=== PATIENT | male | born 1975 | race Caucasian/White ===

== ENCOUNTER 2017-05-12 21:42 | Emergency (ER) | payer BC ==
[2017-05-12 22:01] VITALS: BP 125/90
--- NOTE | 2017-05-12 22:10 | EDM.PDOC ---
ED HPI GENERAL MEDICAL PROBLEM - General Chief Complaint: Abdominal Pain Stated Complaint: RLQ qabdomninal pain x 2 days. Time Seen by Provider: 05/12/17 22:10 Source of Information: Reports: Patient History Limitations: Reports: No Limitations - History of Present Illness INITIAL COMMENTS - FREE TEXT/NARRATIVE: 41-year-old male attends the ED with diffuse right lower quadrant abdominal pain this been present off and on for the last 3 days. There is a strong intermittent colicky component to the pain that travels up towards his right costal margin and then across the to the upper abdomen in the midline. His appetite remains good. Hurts to walk over. He's been bailing the last few days and doesn't notice it so much on the [place] itself it's more when he gets often has to stand and walk. It is painful to stand fully erect. No Vomiting. No diarrhea .Bowel movements have been normal without blood. Has had right lower quadrant and inguinal hernia repair with mesh grafting.. No associated fever or chills. 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 [No Known Home Meds] 05/12/17 [History] Past Medical History - Past Surgical History GI Surgical History: Reports: Hernia Repair/Other (Right lower quadrant with mesh grafting.) Musculoskeletal Surgical History: Reports: Shoulder Surgery, Other (See Below) Other Musculoskeletal Surgeries/Procedures:: knee surgery Social & Family History - Tobacco Use Smoking Status *Q: Current Every Day Smoker Years of Tobacco use: 25 Packs/Tins Daily: 0.5 - Caffeine Use Caffeine Use: Reports: Coffee - Recreational Drug Use Recreational Drug Use: No - Living Situation & Occupation Living situation: Reports: Occupation: Employed ED ROS GENERAL - Review of Systems Review Of Systems: See Below Constitutional: Denies: Fever, Chills, Malaise, Weakness, Fatigue, Decreased Appetite, Weight Loss HEENT: Reports: No Symptoms Respiratory: Reports: No Symptoms Cardiovascular: Reports: No Symptoms Endocrine: Reports: No Symptoms GI/Abdominal: Reports: Abdominal Pain. Denies: Diarrhea, Distension, Flatus, Nausea, Stool Incontinence : Reports: No Symptoms Musculoskeletal: Reports: No Symptoms Skin: Reports: No Symptoms Neurological: Reports: No Symptoms Psychiatric: Reports: No Symptoms Hematologic/Lymphatic: Reports: No Symptoms Immunologic: Reports: No Symptoms ED EXAM, GI/ABD - Physical Exam Exam: See Below Exam Limited By: No Limitations General Appearance: Alert, WD/WN, No Apparent Distress, Other (Normal vital signs and he is afebrile.) Eyes: Bilateral: Normal Appearance (No jaundice.) Throat/Mouth: Normal Inspection, Normal Oropharynx Head: Atraumatic, Normocephalic Neck: Normal Inspection, Supple, Non-Tender, Full Range of Motion. No: Lymphadenopathy (L), Lymphadenopathy (R) Respiratory/Chest: No Respiratory Distress, Lungs Clear, Normal Breath Sounds, No Accessory Muscle Use Cardiovascular: Normal Peripheral Pulses, Regular Rate, Rhythm, No Edema, No Gallop, No Murmur GI/Abdominal: Hyperactive Bowel Sounds (Mildly hyperactive bowel sounds in all 4 quadrants.), Tenderness (Waylon the right lower quadrant and right radha- abdomen to palpation without rebound or guarding.). No: Guarding, Rebound, Rigidity (Male) Exam: No Hernia Back Exam: Normal Inspection, Full Range of Motion Extremities: Normal Inspection, Normal Range of Motion, Non-Tender, No Pedal Edema Neurological: Alert, Oriented, CN II-XII Intact, Normal Cognition, Normal Gait Psychiatric: Normal Affect, Normal Mood Skin Exam: Warm, Dry, Intact, Normal Color, No Rash Course - Vital Signs Last Recorded V/S: Last Vital Signs Temp 36.6 C 05/12/17 21:55 Pulse 86 05/12/17 21:55 Resp 18 05/12/17 21:55 BP 125/90 05/12/17 21:55 Pulse Ox 98 05/12/17 21:55 - Orders/Labs/Meds Orders: Active Orders 24 hr Category Date Time Status Abdomen 1V Flat [CR] Stat Exams 05/12/17 22:18 Taken Abdomen Pelvis w Cont [CT] Stat Exams 05/13/17 00:05 Taken Ketorolac [Toradol] Med 05/12/17 22:30 Active 30 mg IVPUSH ONETIME Sodium Chloride 0.9% [Saline Flush] Med 05/13/17 00:02 Active 10 ml FLUSH ONETIME PRN Medication Orders Ketorolac Tromethamine (Toradol) 30 mg IVPUSH ONETIME LEON Last Admin: 05/12/17 22:30 Dose: 30 mg Sodium Chloride (Saline Flush) 10 ml FLUSH ONETIME PRN PRN Reason: IV FLUSH Last Admin: 05/13/17 00:12 Dose: 10 ml Labs: Laboratory Tests 05/12/17 05/12/17 05/12/17 Range/Units 22:22 22:22 22:40 WBC 12.31 H (4.23-9.07) K/mm3 RBC 5.07 (4.63-6.08) M/mm3 Hgb 14.9 (13.7-17.5) gm/L Hct 42.9 (40.1-51.0) % MCV 84.6 (79.0-92.2) fl MCH 29.4 (25.7-32.2) pg MCHC 34.7 (32.2-35.5) g/dl RDW Std Deviation 40.9 (35.1-43.9) fL Plt Count 288 (163-337) K/mm3 MPV 9.3 L (9.4-12.3) fl Neutrophils % (Manual) 64 H (40-60) % Band Neutrophils % 0 (0-10) % Lymphocytes % (Manual) 25 (20-40) % Atypical Lymphs % 0 % Monocytes % (Manual) 6 (2-10) % Eosinophils % (Manual) 5 (0.8-7.0) % Basophils % (Manual) 0 L (0.2-1.2) Platelet Estimate Adequate Plt Morphology Comment Normal RBC Morph Comment Normal Sodium 138 (136-145) mEq/L Potassium 3.7 (3.5-5.1) mEq/L Chloride 103 (98-107) mEq/L Carbon Dioxide 23 (21-32) mEq/L Anion Gap 15.7 H (5-15) BUN 15 (7-18) mg/dL Creatinine 0.9 (0.7-1.3) mg/dL Est Cr Clr Drug Dosing 111.53 mL/min Estimated GFR (MDRD) > 60 (>60) mL/min BUN/Creatinine Ratio 16.7 (14-18) Glucose 114 H (74-106) mg/dL Calcium 8.6 (8.5-10.1) mg/dL Total Bilirubin 0.3 (0.2-1.0) mg/dL AST TNP ALT 33 (16-63) U/L Alkaline Phosphatase 84 (46-116) U/L C-Reactive Protein 1.0 (<1.0) mg/dL Total Protein 7.3 (6.4-8.2) g/dl Albumin 3.6 (3.4-5.0) g/dl Globulin 3.7 gm/dL Albumin/Globulin Ratio 1.0 (1-2) Lipase 125 (73-393) U/L Urine Color Yellow (Yellow) Urine Appearance Clear (Clear) Urine pH 5.5 (5.0-8.0) Ur Specific [place] > or = 1.030 (1.005-1.030) Urine Protein Negative (Negative) Urine Glucose (UA) Negative (Negative) Urine Ketones Negative (Negative) Urine Occult Blood Negative (Negative) Urine Nitrite Negative (Negative) Urine Bilirubin Negative (Negative) Urine Urobilinogen 1.0 (0.2-1.0) Ur Leukocyte Esterase Negative (Negative) Urine RBC Not seen (0-5) /hpf Urine WBC 0-5 (0-5) /hpf Ur Epithelial Cells Not seen (0-5) /hpf Urine Bacteria Few (FEW) /hpf Urine Mucus Few (FEW) /hpf Meds: Medications Generic Name Dose Route Start Last Admin Trade Name Freq PRN Reason Stop Dose Admin Ketorolac Tromethamine 30 mg 05/12/17 22:30 05/12/17 22:30 Toradol IVPUSH 30 mg ONETIME LEON Administration Sodium Chloride 10 ml 05/13/17 00:02 05/13/17 00:12 Saline Flush FLUSH 10 ml ONETIME PRN Administration IV FLUSH Discontinued Medications Generic Name Dose Route Start Last Admin Trade Name Freq PRN Reason Stop Dose Admin Dicyclomine HCl 20 mg 05/13/17 00:34 Bentyl PO 05/13/17 00:35 ONETIME ONE Sodium Chloride 1,000 mls @ 500 mls/hr 05/12/17 22:19 05/12/17 22:29 Normal Saline IV 05/13/17 00:18 500 mls/hr ONETIME ONE Administration Iopamidol 150 ml 05/13/17 00:02 05/13/17 00:12 Isovue-300 (61%) IVPUSH 05/13/17 00:03 125 ml ONETIME ONE Administration Magnesium Citrate 210 ml 05/13/17 00:35 Citrate Of Magnesia PO 05/13/17 00:36 ONETIME ONE - Radiology Interpretation Free Text/Narrative:: 41-year-old male attends the ED with gradually worsening right lower quadrant abdominal pain over the last 3 days. There seems to be a constant discomfort as well as an intermittent colicky component. Pain radiates up along the division the right hemicolon to the right costal margin and across to the midline at times. Appetite remains good. He states it's painful to stand fully erect and painful to walk. Painful to cough at times as well. He's been bailing the last several days and doesn't notice as much while he sitting on the [place] but more when he gets up to move and walk suggesting abdominal wall strain. He can't remember anything that would've injured his abdominal wall. No previous abdominal surgery. Examination reveals hyperactive bowel sounds in all 4 quadrants. Benign abdominal examination without guarding or rebound. KUB to be done. Routine labs including a CBC CMP and a CRP to be done including a lipase. IV will be normal saline at open. Given Toradol 30 mg IV for pain relief. - Re-Assessments/Exams Free Text/Narrative Re-Assessment/Exam: 05/12/17 22:50 KUB reveals increased stool in the cecum and in the transverse colon without any air-fluid level to suggest obstruction. However there is an abnormal air-fluid level in a serpiginous pattern in the right lower quadrant and suspect fluid in the right lower quadrant of unclear etiology. Therefore I will go ahead with CT of the abdomen and pelvis with oral and IV contrast. 05/12/17 23:03 labs are now back revealing an elevated white count at 12.31 with essentially a normal differential 64% neutrophils and no bands. Hemoglobin is 14.9 HEENT hematocrit is 42.9. Platelets are normal limits. 22,000. Chemistry is normal as well. Anion gap is mildly elevated at 15.7. Creatinine is 0.9 CRP is 1.0 lipase is 125. Therefore there is nothing metabolically that appears out of the norm. 05/13/17 00:30 CT of the abdomen and pelvis has been performed. The reveals a normal-looking liver and gallbladder. Pancreas appears normal both kidneys and drainage systems look normal. There is a large amount of stool throughout the entire colon particularly the right hemicolon and transverse colon. Appendix is well-visualized and shows no signs of active infection. There is no free fluid in the pelvis. Patient and so advised. He'll be given Citroma 7 ounces by mouth which will mix with the oral contrast that he's taken tonight. This should provide satisfactory bowel cleanse over the next 6 hours. He'll be discharged to home. I did give him Bentyl 20 mg orally before he left the department to minimize some of his abdominal pain. Departure - Departure Time of Disposition: 00:37 Disposition: Home, Self-Care 01 Condition: Fair Clinical Impression: Constipation by delayed colonic transit Abdominal pain Qualifiers: Abdominal location: right lower quadrant Qualified Code(s): R10.31 - Right lower quadrant pain - Discharge Information Referrals: Lizzette Kemp PA [Primary Care Provider] - Forms: ED Department Discharge Additional Instructions: Evaluation the emergency room tonight in regards to persistent intermittent right lower quadrant and right radha-abdominal pain for the last 2-3 days. No change in appetite. Bowel function tends to be on the diarrhea side. On examination bowel sounds were quite active in all 4 quadrants. Evidence of the previous inguinal hernia repair in the right lower quadrant noted. X-ray of the abdomen showed at bizarre there and gas collection in the cecum or outside of the cecum in the right lower quadrant of the abdomen. Therefore this should by CT of the abdomen and pelvis. The CT of the abdomen and pelvis. To be completely normal and appendix is well-visualized without any signs of active appendicitis or infection of the colon. There is an increased amount of stool throughout the entire right hemicolon and transverse colon compatible with constipation. The contrast that he drank 4 CT exam plus oral Citroma given in the ED will provide bowel cleanse over the next 2-3 hours. Pain should be completely resolved once the bowels have been cleansed. They eat and drink per normal. Follow-up if not markedly improved after bowel cleanse. - My Orders Last 24 Hours: My Active Orders 05/12/17 22:18 Abdomen 1V Flat [CR] Stat 05/12/17 22:30 Ketorolac [Toradol] 30 mg IVPUSH ONETIME 05/13/17 00:02 Sodium Chloride 0.9% [Saline Flush] 10 ml FLUSH ONETIME PRN 05/13/17 00:05 Abdomen Pelvis w Cont [CT] Stat - Assessment/Plan Last 24 Hours: My Active Orders 05/12/17 22:18 Abdomen 1V Flat [CR] Stat 05/12/17 22:30 Ketorolac [Toradol] 30 mg IVPUSH ONETIME 05/13/17 00:02 Sodium Chloride 0.9% [Saline Flush] 10 ml FLUSH ONETIME PRN 05/13/17 00:05 Abdomen Pelvis w Cont [CT] Stat
[2017-05-12] MEDS ORDERED: Sodium Chloride 0.9% 1,000 ML IV ONE (22:19)
[2017-05-12] MEDS ORDERED: Ketorolac 30 MG/ML SDV IVPUSH SCH (22:30)
[2017-05-13] MEDS ORDERED: Sodium Chloride 0.9% 10 ML Syringe FLUSH PRN (00:02)
[2017-05-13] MEDS ORDERED: Iopamidol 612 MG/ML 150 ML Bottle IVPUSH ONE (00:02)
[2017-05-13] MEDS ORDERED: Dicyclomine 10 MG Cap PO ONE (00:34)
[2017-05-13] MEDS ORDERED: Magnesium Citrate Solution 296 ML Bottle PO ONE ×2 (00:35→00:45)
--- NOTE | 2017-05-14 17:53 | CR ---
Abdomen: Supine view of the abdomen was obtained. Comparison: No previous exam. Bowel gas pattern appears normal. Calcifications are seen within the pelvis likely representing phleboliths. Bony structures are within normal limits. No discrete soft tissue abnormality is seen. Impression: 1. Nonspecific supine abdominal x-ray. Diagnostic code #2
--- NOTE | 2017-05-14 17:53 | CT ---
CT abdomen and pelvis Technique: Multiple axial sections were obtained from above the dome of the diaphragm inferiorly through the pubic symphysis. Intravenous and oral contrast was utilized. Delayed images were also obtained through the bladder. Comparison: No previous CT exam is available. Findings: Small portion of the visualized lung bases show nothing acute. Liver shows a minimal low-density area within the right lobe measuring about 4 mm most likely representing minimal cyst. No additional abnormality is seen within the liver. Spleen appears within normal limits. Adrenal glands show no nodule. Pancreas is within normal limits. Kidneys show symmetric contrast enhancement without hydronephrosis or mass. Aorta shows no aneurysmal dilatation. No retroperitoneal adenopathy or mesenteric abnormalities are seen. Appendix is seen which appears within normal limits. No pelvic mass or adenopathy is seen. Bowel shows no dilatation. No free fluid or inflammatory change is seen. Delayed images show contrast within the distal ureters and within the bladder. Bone window settings were reviewed which appear within normal limits for the patient's age. Impression: 1. Incidental findings. Nothing acute is seen on CT study of the abdomen and pelvis. Diagnostic code #2 I agree with preliminary report issued by [employer] ([facility] preliminary report dictated on 05/13/17, 1:41 AM Central Time)
== END 2017-05-13 00:53 | disposition home or self-care (01) ==
LOC: JD.ED 21:42
DX: K59.01 Slow transit constipation (principal); R10.31 Right lower quadrant pain; F17.210 Nicotine dependence, cigarettes, uncomplicated; Z98.890 Other specified postprocedural states
CPT/HCPCS: 36415; 74000; 74177; 80053; 81001; 83690; 85025; 86140; 96361; 96374; 99285; A9270; J1885; J7040; J7050; Q9967; 99284

== ENCOUNTER 2018-03-17 20:52 | Emergency (ER) | payer BC ==
[2018-03-17 21:06] VITALS: BP 139/91
--- NOTE | 2018-03-17 21:13 | EDM.PDOC ---
ED HPI GENERAL MEDICAL PROBLEM - General Chief Complaint: ENT Problem Stated Complaint: COUGH/SORE THROAT/FEVER Time Seen by Provider: 03/17/18 21:13 Source of Information: Reports: Patient History Limitations: Reports: No Limitations - History of Present Illness INITIAL COMMENTS - FREE TEXT/NARRATIVE: Haresh is a 42yo male comes to ED ambulatory with for one week hx of sore throat, ear pain, cough, headache due to coughing. cough is mildly productive with slight yellow/green sputum production. He has had fevers, chills and sweats , sweats worse at night. No n/v/d. Minimal appetite. He has had sick contacts with his kids at home the past month. He is otherwise healthy. NKDA. He does smoke cigarettes- has cut back and is trying to quit. Onset: Gradual Duration: Day(s): (4-5) Location: Reports: Other (throat, ears, chest/cough) Improves with: Reports: None Worsens with: Reports: Breathing, Movement Associated Symptoms: Reports: Cough, cough w sputum (minimal amt of yellow/ green sputum production), Diaphoresis, Fever/Chills, Headaches, Loss of Appetite , Malaise. Denies: Confusion, Chest Pain, Nausea/Vomiting, Rash, Shortness of Breath, Syncope, Weakness Treatments QUALITY REVIEWER: Reports: Acetaminophen, NSAIDS Throat Pain Score (Numeric/FACES): 7 - Related Data Allergies Allergy/AdvReac Type Severity Reaction Status Date / Time No Known Allergies Allergy Verified 03/17/18 21:04 Home Meds: Home Meds Ibuprofen 800 mg PO ONCALL PRN 03/17/18 [History] Past Medical History - Past Surgical History GI Surgical History: Reports: Hernia Repair/Other Musculoskeletal Surgical History: Reports: Shoulder Surgery, Other (See Below) Other Musculoskeletal Surgeries/Procedures:: knee surgery Social & Family History - Tobacco Use Smoking Status *Q: Current Every Day Smoker Years of Tobacco use: 20 Packs/Tins Daily: 0.5 - Caffeine Use Caffeine Use: Reports: Coffee - Recreational Drug Use Recreational Drug Use: No - Living Situation & Occupation Living situation: Reports: Occupation: Employed ED ROS ENT - Review of Systems Review Of Systems: See Below Constitutional: Reports: Fever, Chills, Malaise, Fatigue, Night Sweats, Diaphoresis, Decreased Appetite HEENT: Reports: Ear Pain, Throat Pain Respiratory: Reports: Cough, Sputum. Denies: Shortness of Breath, Hemoptysis Cardiovascular: Reports: No Symptoms GI/Abdominal: Reports: No Symptoms Skin: Denies: Rash Neurological: Reports: Headache ED EXAM, ENT - Physical Exam Exam: See Below Exam Limited By: No Limitations General Appearance: Alert, WD/WN, Mild Distress, Other (coughing spells) Eye Exam: Bilateral Eye: EOMI, PERRL Ears: Normal Canal, TM Dullness, TM Fluid Nose: Normal Inspection Mouth/Throat: Normal Gums, Normal Teeth, Pharyngeal Erythema. No: Tonsillar Exudates, Tonsillar Swelling Head: Atraumatic, Normocephalic Neck: Normal Inspection, Lymphadenopathy (L), Lymphadenopathy (R) Respiratory/Chest: No Respiratory Distress, No Accessory Muscle Use, Rhonchi, Wheezing Cardiovascular: Regular Rate, Rhythm, No Murmur GI/Abdominal: Normal Bowel Sounds, Soft, Non-Tender (Male) Exam: Deferred Rectal (Males) Exam: Deferred Extremities: No Pedal Edema Neurological: Alert, Oriented, Normal Cognition Skin: Warm, Dry, Intact Course - Vital Signs Last Recorded V/S: Last Vital Signs Temp 100.0 F 03/17/18 21:04 Pulse 98 03/17/18 21:04 Resp 16 03/17/18 21:04 BP 139/91 H 03/17/18 21:04 Pulse Ox 94 L 03/17/18 21:04 - Orders/Labs/Meds Meds: Medications Discontinued Medications Generic Name Dose Route Start Last Admin Trade Name Freq PRN Reason Stop Dose Admin Ceftriaxone Sodium 500 mg 03/17/18 21:24 Rocephin IM 03/17/18 21:25 ONETIME ONE Departure - Departure Time of Disposition: 21:35 Disposition: Home, Self-Care 01 Condition: Good Clinical Impression: Tonsillitis, Bronchitis Serous otitis media Qualifiers: Chronicity: acute Laterality: bilateral Recurrence: not specified as recurrent Qualified Code(s): H65.03 - Acute serous otitis media, bilateral - Discharge Information Instructions: Tonsillitis, [id number], Acute Bronchitis, Adult, [id number] Referrals: Naomi Mccullough [employer] [Primary Care Provider] - Forms: ED Department Discharge Additional Instructions: Push fluids Tylenol or motrin, can alternate every 4 hours for headache/pain Sudafed for ear pain/pressure Antibiotic twice daily x 7 days Cough syrup if needed every 4 hours Follow up with [facility]ER[facility] Griffith if not significantly improved by early next week Return to ER if needed for worsening, problems, questions/concerns.
[2018-03-17] MEDS ORDERED: cefTRIAXone 250 MG Vial IM ONE (21:24)
[2018-03-17] MEDS ORDERED: cefTRIAXone 1 GM Vial ONE (21:26)
[2018-03-17] MEDS ORDERED: cefTRIAXone 1 GM Vial IM ONE (21:40)
== END 2018-03-17 21:45 | disposition home or self-care (01) ==
LOC: JD.ED 20:52
DX: H65.03 Acute serous otitis media, bilateral (principal); J03.90 Acute tonsillitis, unspecified; J40 Bronchitis, not specified as acute or chronic; F17.210 Nicotine dependence, cigarettes, uncomplicated
CPT/HCPCS: 96372; 99283; J0696

== ENCOUNTER 2019-09-07 14:23 | Emergency (ER) | payer BC ==
[2019-09-07 14:34] VITALS: BP 146/92; PULSE 77
[2019-09-07] MEDS ORDERED: HYDROmorphone 1 MG/ML Syringe IM ONE (14:36)
[2019-09-07] MEDS ORDERED: Ondansetron 4 MG Tab.DIS PO PRN (14:41)
--- NOTE | 2019-09-07 14:48 | EDM.PDOC ---
ED HPI GENERAL MEDICAL PROBLEM - General Chief Complaint: Upper Extremity Injury/Pain Stated Complaint: L HAND INJURY Time Seen by Provider: 09/07/19 14:35 Source of Information: Reports: Patient, RN Notes Reviewed History Limitations: Reports: No Limitations - History of Present Illness INITIAL COMMENTS - FREE TEXT/NARRATIVE: Patient is a 44-year-old male who presents to the ED for evaluation of a left hand injury. Patient states that just prior to arrival to the ED, he got his hand crushed between a rope and the cow's head. There is significant swelling noted to the MCPs of the left hand, with some mild swelling noted to the fingers. Patient believes he is up-to-date with his tetanus, he states that his whole hand and fingers are throbbing with pain. He is not able to move the fingers much, as there is quite a bit of swelling, he was able to wiggle the fingers limitedly for me, and he can feel my touch distal to the diffuse swelling over the MCPs. There are some lacerations noted on the hand, however there is quite a bit of bleeding present, will assess lacerations when the nurse has time to clean the wound up. Of note the patient is on blood thinners due to having 2 stents placed recently by Dr. Coulter. Patient notes he is right- hand dominant. Left Hand Pain Score (Numeric/FACES): 8 - Related Data Allergies Allergy/AdvReac Type Severity Reaction Status Date / Time No Known Allergies Allergy Verified 09/07/19 15:12 Home Meds: Home Meds Aspirin [[place] Aspirin EC] 81 mg PO DAILY 06/04/19 [History] Nitroglycerin 0.4 mg SL ASDIRECTED PRN 06/04/19 [History] Ticagrelor [Brilinta] 90 mg PO BID 06/04/19 [History] atorvaSTATin Calcium [Atorvastatin Calcium] 40 mg PO DAILY 06/04/19 [History] Acetaminophen/HYDROcodone [[place] 325-5 MG] 1 tab PO Q6H PRN #12 tablet 09/07/19 [Rx] Past Medical History Cardiovascular History: Reports: High Cholesterol, [place], Stents - Past Surgical History HEENT Surgical History: Reports: Naso-Sinus Surgery GI Surgical History: Reports: Hernia Repair/Other Musculoskeletal Surgical History: Reports: Shoulder Surgery, Other (See Below) Other Musculoskeletal Surgeries/Procedures:: knee surgery Social & Family History - Family History Cardiac: Reports: CAD, [place] - Tobacco Use Smoking Status *Q: Current Every Day Smoker Years of Tobacco use: 25 Packs/Tins Daily: 0.3 - Caffeine Use Caffeine Use: Reports: Coffee, Soda - Recreational Drug Use Recreational Drug Use: No - Living Situation & Occupation Living situation: Reports: Occupation: Employed Review of Systems - Review of Systems Review Of Systems: ROS reveals no pertinent complaints other than HPI. Musculoskeletal: Reports: Hand Pain (Left hand, mainly over MCP and into fingers 2-5) Skin: Reports: Wound, Other (swelling noted to L MCP 2-5). Denies: Mottled, Pallor, Change in Color Neurological: Reports: No Symptoms. Denies: Numbness, Tingling Psychiatric: Reports: No Symptoms ED EXAM, GENERAL - Physical Exam Exam: See Below Exam Limited By: No Limitations General Appearance: Alert, WD/WN, No Apparent Distress Respiratory/Chest: No Respiratory Distress, Lungs Clear, Normal Breath Sounds, No Accessory Muscle Use, Chest Non-Tender Cardiovascular: Normal Peripheral Pulses, Regular Rate, Rhythm, No Murmur Peripheral Pulses: 3+: Radial (L), Radial (R) Extremities: Normal Inspection, Normal Range of Motion (of right hand), Normal Capillary Refill (of right hand), Limited Range of Motion (of left hand and fingers 2-5) Neurological: Alert, Oriented, Normal Cognition, No Motor/Sensory Deficits Psychiatric: Normal Affect, Normal Mood Skin Exam: Warm, Dry, Normal Color, No Rash, Wound/Incision (2 wounds : On the palmar aspect of left hand near the left ring finger base, this laceration is curvilinear, and roughly 3 cm long, and actively bleeding. Area to is on the posterior aspect of the left h between the web spacing of the thumb and the first and the second digit, this was a skin flap, roughly 3 x 2 cm. Still actively bleeding. ) ED TRAUMA EXTREMITY PROCEDURES - Laceration/Wound Repair Left Proximal Digit - 4th (Ring) Lac/Wound Length In cm: 3 Appearance: Superficial, Linear, Clean, Mildly Contaminated Distal NVT: Neuro & Vascular Intact, No Tendon Injury Anesthetic Type: Local Local Anesthetic Volume: 4cc Skin Prep: Chlorhexidine (Hibiciens), Saline Exploration/Debridement/Repair: Wound Explored, In a Bloodless Field, Explored to Base, No Foreign Material Found Closed With: Sutures Suture Size: 4-0 # of Sutures: 4 Sterile Dressing Applied: Nurse Tetanus Status Addressed: Yes Complications: No Left Posterior Lateral Hand Lac/Wound Length In cm: 3 (v-shaped, 3x2cm) Appearance: Irregular, Clean Distal NVT: Neuro & Vascular Intact, No Tendon Injury Sterile Dressing Applied: Nurse Tetanus Status Addressed: Yes Complications: No Progress/Comments: This was a skin flap type injury, there was little viable tissue to suture, so the area was debrided away to heal by it's own intention. Course - Vital Signs Last Recorded V/S: Last Vital Signs Temp 98.3 F 09/07/19 14:30 Pulse 77 09/07/19 14:30 Resp 20 09/07/19 14:30 BP 146/92 H 09/07/19 14:30 Pulse Ox 99 09/07/19 14:30 - Orders/Labs/Meds Orders: Active Orders 24 hr Category Date Time Status Influenza Vaccine Charge [RC] .DISCHARGE Care 09/07/19 16:37 Active Hand Comp Min 3V Lt [CR] Stat Exams 09/07/19 14:36 Taken Ondansetron [Zofran ODT] Med 09/07/19 14:41 Active 4 mg PO Q4H PRN Medication Orders Ondansetron HCl (Zofran Odt) 4 mg PO Q4H PRN PRN Reason: Nausea Meds: Medications Generic Name Dose Route Start Last Admin Trade Name Freq PRN Reason Stop Dose Admin Ondansetron HCl 4 mg 09/07/19 14:41 Zofran Odt PO Q4H PRN Nausea Discontinued Medications Generic Name Dose Route Start Last Admin Trade Name Freq PRN Reason Stop Dose Admin Hydrocodone Bitart/Acetaminophen 1 tab 09/07/19 15:20 09/07/19 15:29 [place] 325-5 Mg PO 09/07/19 15:21 1 tab ONETIME ONE Administration Hydromorphone HCl 1 mg 09/07/19 14:36 09/07/19 14:41 Dilaudid IM 09/07/19 14:37 1 mg ONETIME ONE Administration Influenza Virus Vaccine 1 each 09/07/19 16:36 Pharmacy To Dose - Influenza Vaccine IM 09/07/19 16:37 ONETIME ONE Influenza Virus Vaccine 60 mcg 09/07/19 16:45 Fluzone Quad [id number] Syringe IM 09/07/19 16:46 .ONCE ONE Lidocaine HCl 10 ml 09/07/19 15:57 09/07/19 16:22 Xylocaine 1% INJECT 09/07/19 15:58 10 ml ONETIME ONE Administration - Re-Assessments/Exams Free Text/Narrative Re-Assessment/Exam: 09/07/19 14:50 Patient resents to the ED for the evaluation of a left hand injury. This appears to be pretty extreme crush type injury, have ordered hand x-rays to be obtained, and 1 mg IM Dilaudid for initial pain management, with 4 mg ODT Zofran PRN in case he develops nausea from the Dilaudid. There are wounds noted to the hand, however with the amount of blood at this time I cannot ascertain the level of severity. I will reassess the hand once the x-rays are done, and the nurse has a chance to clean the hand up a little more. 09/07/19 16:49 Hand x-ray demonstrates no obvious fracture or bony deformity. This was reviewed by Dr. Hong and myself, official radiology read is pending. There was one suturable wound to the proximal base of the left fourth finger, on the palmar aspect of the hand. This was repaired with 4 nonabsorbable sutures, discharge instructions as documented. After I repaired his wounds, the patient wished to receive the influenza vaccine, so I did order this to be given as well. Departure - Departure Time of Disposition: 16:44 Disposition: Home, Self-Care 01 Condition: Fair Clinical Impression: Crushing injury of left hand Qualifiers: Encounter type: initial encounter Qualified Code(s): S67.22XA - Crushing injury of left hand, initial encounter Laceration of left hand Qualifiers: Encounter type: initial encounter Foreign body presence: without foreign body Qualified Code(s): S61.412A - Laceration without foreign body of left hand, initial encounter Traumatic hematoma of left hand Qualifiers: Encounter type: initial encounter Qualified Code(s): S60.222A - Contusion of left hand, initial encounter - Discharge Information *PRESCRIPTION DRUG MONITORING PROGRAM REVIEWED*: No *COPY OF PRESCRIPTION DRUG MONITORING REPORT IN PATIENT ODALYS: No Prescriptions: Acetaminophen/HYDROcodone [[place] 325-5 MG] 1 tab PO Q6H PRN #12 tablet PRN Reason: Pain Instructions: Hand Contusion, [id number], Sutured Wound Care, [id number] Referrals: Naomi Mccullough, [employer] [Primary Care Provider] - Forms: ED Department Discharge Additional Instructions: You have been evaluated in the ED for your laceration. Sutures will need to stay in for 10-14 days (09/17 - 09/21) You may return to the ED or clinic for removal. Please keep this area clean and dry, you may cleanse with regular soap and water. No vigorous scrubbing. You were given a prescription for hydrocodone/acetaminophen, 5/325, please take one tablet every 6 hours as needed for pain not relieved by Tylenol alone. Please be wary that you are only taking up to 4000 mg of Tylenol in a 24-hour time span. Recommend that you have a follow-up appointment with your primary care provider , Monday or Monday to assess the area, so that the swelling has time to come down. Please keep the area wrapped as tight as possible with an Brent wrap, and keep your hand above your heart level, you will need to rest this on your chest when laying down. This should help keep the swelling down as well. You may try to ice the area as well for swelling relief. 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 Please return to ED if your symptoms change or worsen. - My Orders Last 24 Hours: My Active Orders 09/07/19 14:36 Hand Comp Min 3V Lt [CR] Stat 09/07/19 14:41 Ondansetron [Zofran ODT] 4 mg PO Q4H PRN 09/07/19 16:37 Influenza Vaccine Charge [RC] .DISCHARGE - Assessment/Plan Last 24 Hours: My Active Orders 09/07/19 14:36 Hand Comp Min 3V Lt [CR] Stat 09/07/19 14:41 Ondansetron [Zofran ODT] 4 mg PO Q4H PRN 09/07/19 16:37 Influenza Vaccine Charge [RC] .DISCHARGE
[2019-09-07] MEDS ORDERED: Acetaminophen/HYDROcodone 325-5 MG Tab PO ONE (15:20)
[2019-09-07] MEDS ORDERED: Lidocaine 1% 10 ML MDV INJECT ONE (15:57)
[2019-09-07] MEDS ORDERED: FLU Vacc QS2019-20(6MOS+)/PF 60 MCG/0.5 ML SYRINGE IM ONE (16:45)
--- NOTE | 2019-09-08 16:15 | CR ---
Left hand: Four views of the left hand were obtained. Comparison: No prior hand exam. Joint spaces are preserved. Prominent soft tissue swelling is noted dorsally. No discrete fracture, dislocation or other bony abnormality is seen. Impression: 1. Soft tissue swelling. No acute bony abnormality is appreciated on left hand exam. Diagnostic code #2
== END 2019-09-07 16:58 | disposition home or self-care (01) ==
LOC: JD.ED 14:23
DX: S67.22XA Crushing injury of left hand, initial encounter (principal); S67.195A Crushing injury of left ring finger, initial encounter; S61.215A Laceration without foreign body of left ring finger without damage to nail, initial encounter; S61.412A Laceration without foreign body of left hand, initial encounter; I25.2 Old myocardial infarction; E78.00 Pure hypercholesterolemia, unspecified; F17.210 Nicotine dependence, cigarettes, uncomplicated; Z23 Encounter for immunization; Z79.82 Long term (current) use of aspirin; Z95.5 Presence of coronary angioplasty implant and graft; Z79.899 Other long term (current) drug therapy; W55.29XA Other contact with cow, initial encounter
CPT/HCPCS: 12002; 73130; 90471; 90686; 96372; 99283; A9270; J1170; J2001; G0008

== ENCOUNTER 2021-11-10 20:53 | Emergency (ER) | payer BC ==
[2021-11-10 21:08] VITALS: BP 136/92; PULSE 86
[2021-11-10] MEDS ORDERED: Metoclopramide 10 MG/2 ML SDV IVPUSH ONE (21:24)
[2021-11-10] MEDS ORDERED: Sodium Chloride 0.9% 10 ML Syringe FLUSH PRN (21:24)
[2021-11-10] MEDS ORDERED: Sodium Chloride 0.9% 1,000 ML IV STA (21:24)
[2021-11-10] MEDS ORDERED: HYDROmorphone 1 MG/ML Syringe IVPUSH ONE (21:25)
--- NOTE | 2021-11-10 21:31 | EDM.PDOC ---
ED HPI GENERAL MEDICAL PROBLEM - General Chief Complaint: Gastrointestinal Problem Stated Complaint: ABD PAIN Time Seen by Provider: 11/10/21 21:09 Source of Information: Reports: Patient History Limitations: Reports: No Limitations - History of Present Illness INITIAL COMMENTS - FREE TEXT/NARRATIVE: The patient presents with abdominal pain and nausea. This started lat night a fter eating a burger at the [facility] in [place]. He has nausea but no vomiting. He has been burping. He has no appetite. He just had coffee and water today. He has loose stools but that is normal for him. He has no fever, chills, cough, chest pain or shortness of breath. The pain is in the mid abdomen and to the right side. He has no dysuria. He still has his gallbladder and appendix. Onset: Gradual Duration: Day(s): (last night) Location: Reports: Abdomen Quality: Reports: Sharp Severity: Moderate Improves with: Reports: None Worsens with: Reports: None Associated Symptoms: Reports: Nausea/Vomiting. Denies: Chest Pain, Cough, Fever/Chills, Headaches, Shortness of Breath Abdomen Pain Score (Numeric/FACES): 4 - Related Data Allergies Allergy/AdvReac Type Severity Reaction Status Date / Time No Known Allergies Allergy Verified 11/10/21 21:08 Home Meds: Home Meds Aspirin [[place] Aspirin EC] 81 mg PO DAILY 06/04/19 [History] Nitroglycerin 0.4 mg SL ASDIRECTED PRN 06/04/19 [History] Ezetimibe 10 mg PO DAILY 11/10/21 [History] Rosuvastatin [Crestor] 40 mg PO BEDTIME 11/10/21 [History] Metoclopramide HCl [Reglan] 10 mg PO Q6H PRN #20 tablet 11/11/21 [Rx] Omeprazole Magnesium [Prilosec Otc] 20 mg PO DAILY #14 tablet. 11/11/21 [Rx] Past Medical History Cardiovascular History: Reports: High Cholesterol, [place], Stents - Past Surgical History HEENT Surgical History: Reports: Naso-Sinus Surgery GI Surgical History: Reports: Hernia Repair/Other Musculoskeletal Surgical History: Reports: Shoulder Surgery, Other (See Below) Other Musculoskeletal Surgeries/Procedures:: knee surgery Social & Family History - Family History Cardiac: Reports: CAD, [place] - Tobacco Use Years of Tobacco use: 30 Packs/Tins Daily: 1 Used Tobacco, but Quit: No - Caffeine Use Caffeine Use: Reports: Coffee - Recreational Drug Use Recreational Drug Use: No - Living Situation & Occupation Living situation: Reports: Occupation: Employed ED ROS GENERAL - Review of Systems Review Of Systems: See Below Constitutional: Reports: No Symptoms HEENT: Reports: No Symptoms Respiratory: Reports: No Symptoms Cardiovascular: Reports: No Symptoms Endocrine: Reports: No Symptoms GI/Abdominal: Reports: Abdominal Pain, Diarrhea, Nausea. Denies: Vomiting : Reports: No Symptoms Musculoskeletal: Reports: No Symptoms Skin: Reports: No Symptoms ED EXAM, GI/ABD - Physical Exam Exam: See Below Exam Limited By: No Limitations General Appearance: Alert, No Apparent Distress Ears: Normal External Exam Nose: Normal Inspection Head: Atraumatic, Normocephalic Neck: Normal Inspection Respiratory/Chest: No Respiratory Distress, Lungs Clear, Normal Breath Sounds Cardiovascular: Regular Rate, Rhythm, No Edema, No Murmur GI/Abdominal Exam: Soft, No Organomegaly, Tender (Mild to moderate tenderness to the mid abdomen extending to the right upper and lower abdomen) Course - Vital Signs Last Recorded V/S: Last Vital Signs Temp 98.8 F 11/10/21 21:04 Pulse 86 11/10/21 21:04 Resp 16 11/10/21 21:04 BP 136/92 H 11/10/21 21:04 Pulse Ox 94 L 11/10/21 21:04 - Orders/Labs/Meds Orders: Active Orders 24 hr Category Date Time Status Peripheral IV Care [RC] . DIRECTED Care 11/10/21 21:24 Active Abdomen Pelvis w Cont [CT] Stat Exams 11/10/21 21:24 Taken Famotidine [Pepcid] Med 11/10/21 23:57 Once 20 mg IVPUSH ONETIME ONE Pantoprazole [ProTONIX IV] Med 11/10/21 23:57 Once 40 mg IVPUSH ONETIME ONE Sodium Chloride 0.9% [Saline Flush] Med 11/10/21 21:24 Active 10 ml FLUSH ASDIRECTED PRN ED Antiemetic Medication Reflex [OM.PC] Stat Oth 11/10/21 21:24 Ordered Peripheral IV Insertion Adult [OM.PC] Stat Oth 11/10/21 21:24 Ordered Medication Orders Sodium Chloride (Sodium Chloride 0.9% 10 Ml Syringe) 10 ml FLUSH ASDIRECTED PRN PRN Reason: Keep Vein Open Last Admin: 11/10/21 21:49 Dose: 10 ml Documented by: ARIANA Labs: Laboratory Tests 11/10/21 11/10/21 11/10/21 Range/Units 21:45 21:45 21:45 WBC 14.15 H (4.23-9.07) K/mm3 RBC 5.73 (4.63-6.08) M/mm3 Hgb 16.6 (13.7-17.5) gm/dl Hct 49.3 (40.1-51.0) % MCV 86.0 (79.0-92.2) fl MCH 29.0 (25.7-32.2) pg MCHC 33.7 (32.2-35.5) g/dl RDW Std Deviation 41.8 (35.1-43.9) fL Plt Count 311 (163-337) K/mm3 MPV 9.2 L (9.4-12.3) fl Neut % (Auto) 66.0 (34.0-67.9) % Lymph % (Auto) 16.6 L (21.8-53.1) % [place] % (Auto) 15.3 H (5.3-12.2) % Eos % (Auto) 1.7 (0.8-7.0) Baso % (Auto) 0.2 (0.1-1.2) % Neut # (Auto) 9.33 H (1.78-5.38) K/mm3 Lymph # (Auto) 2.35 (1.32-3.57) K/mm3 [place] # (Auto) 2.17 H (0.30-0.82) K/mm3 Eos # (Auto) 0.24 (0.04-0.54) K/mm3 Baso # (Auto) 0.03 (0.01-0.08) K/mm3 Manual Slide Review Sodium 136 (136-145) mEq/L Potassium 4.2 (3.5-5.1) mEq/L Chloride 100 (98-107) mEq/L Carbon Dioxide 25 (21-32) mEq/L Anion Gap 15.2 H (5-15) BUN 17 (7-18) mg/dL Creatinine 1.0 (0.7-1.3) mg/dL Est Cr Clr Drug Dosing 95.31 mL/min Estimated GFR (MDRD) > 60 (>60) mL/min BUN/Creatinine Ratio 17.0 (14-18) Glucose 94 (70-99) mg/dL Calcium 8.9 (8.5-10.1) mg/dL Total Bilirubin 0.6 (0.2-1.0) mg/dL AST 24 (15-37) U/L ALT 45 (16-63) U/L Alkaline Phosphatase 90 (46-116) U/L Total Protein 7.9 (6.4-8.2) g/dl Albumin 4.2 (3.4-5.0) g/dl Globulin 3.7 gm/dL Albumin/Globulin Ratio 1.1 (1-2) Lipase 99 (73-393) U/L Urine Color Yellow (Yellow) Urine Appearance Clear (Clear) Urine pH 6.0 (5.0-8.0) Ur Specific [place] 1.015 (1.005-1.030) Urine Protein Negative (Negative) Urine Glucose (UA) Negative (Negative) Urine Ketones Negative (Negative) Urine Occult Blood Negative (Negative) Urine Nitrite Negative (Negative) Urine Bilirubin Negative (Negative) Urine Urobilinogen 0.2 (0.2-1.0) Ur Leukocyte Esterase Negative (Negative) Urine RBC 0-5 (0-5) /hpf Urine WBC 0-5 (0-5) /hpf Ur Squamous Epith Cells 0-5 (0-5) /hpf Urine Bacteria Occasional (FEW) /hpf Urine Mucus Few (FEW) /hpf Meds: Medications Generic Name Dose Route Start Last Admin Trade Name Liam PRN Reason Stop Dose Admin Sodium Chloride 10 ml 11/10/21 21:24 11/10/21 21:49 Sodium Chloride 0.9% 10 Ml Syringe FLUSH 10 ml ASDIRECTED PRN Administration Keep Vein Open Discontinued Medications Generic Name Dose Route Start Last Admin Trade Name Liam PRN Reason Stop Dose Admin Hydromorphone HCl 1 mg 11/10/21 21:25 11/10/21 21:43 Hydromorphone 1 Mg/Ml Syringe IVPUSH 11/10/21 21:26 1 mg ONETIME ONE Administration Sodium Chloride 1,000 mls @ 1,000 mls/hr 11/10/21 21:24 11/10/21 21:42 Normal Saline IV 11/10/21 22:23 1,000 mls/hr .BOLUS STA Administration Metoclopramide HCl 10 mg 11/10/21 21:24 11/10/21 21:43 Metoclopramide 10 Mg/2 Ml Sdv IVPUSH 11/10/21 21:25 10 mg ONETIME ONE Administration - Re-Assessments/Exams Free Text/Narrative Re-Assessment/Exam: 11/10/21 21:31 I ordered an IV NS 1L bolus, reglan 10mg IV, dilaudid 1mg IV, labs, UA and CT of his abdomen and pelvis with IV and oral contrast. 11/10/21 23:58 His WBC was elevated at 14.15. His CMP and lipase look good. His UA shows no UTI. His CT shows findings suggestive of gastroenteritis. No evidence of bowel obstruction, perforation, or abscess. Normal appendix. Moderate colonic stool, possible constipation. Mild distal colonic diverticulosis without evidence of diverticulitis. Additional nonemergent findings. He feels better. I will give him some protonix 40mg IV, and pepcid 20mg. I will also give him a prescription for prilosec daily for 2 weeks and some reglan as needed. Departure - Departure Time of Disposition: 00:05 Disposition: Home, Self-Care 01 Condition: Good Clinical Impression: Gastroenteritis - Discharge Information *PRESCRIPTION DRUG MONITORING PROGRAM REVIEWED*: Not Applicable *COPY OF PRESCRIPTION DRUG MONITORING REPORT IN PATIENT ODALYS: Not Applicable Prescriptions: Omeprazole Magnesium [Prilosec Otc] 20 mg PO DAILY #14 tablet. Metoclopramide HCl [Reglan] 10 mg PO Q6H PRN #20 tablet PRN Reason: Nausea/Vomiting Referrals: Naomi Mccullough, [employer]ISTANT [Primary Care Provider] - 1 Week Forms: ED Department Discharge, ED Return to Work/School Form Additional Instructions: Drink plenty of fluids. Take the prilosec 20mg daily for 2 weeks. Take the re glan every 6 hours as needed for nausea and vomiting. Try to avoid any heavy or spicy foods. That may make this worse. Try a bland diet for a few days. Please return if you are worse. Sepsis Event Note (ED) - Evaluation Sepsis Screening Result: No Definite Risk - Focused Exam Vital Signs: Vital Signs Temp Pulse Resp BP Pulse Ox 11/10/21 21:04 98.8 F 86 16 136/92 H 94 L - My Orders Last 24 Hours: My Active Orders 11/10/21 21:24 Peripheral IV Care [RC] . DIRECTED Abdomen Pelvis w Cont [CT] Stat Sodium Chloride 0.9% [Saline Flush] 10 ml FLUSH ASDIRECTED PRN ED Antiemetic Medication Reflex [OM.PC] Stat Peripheral IV Insertion Adult [OM.PC] Stat 11/10/21 23:57 Famotidine [Pepcid] 20 mg IVPUSH ONETIME ONE Pantoprazole [ProTONIX IV] 40 mg IVPUSH ONETIME ONE - Assessment/Plan Last 24 Hours: My Active Orders 11/10/21 21:24 Peripheral IV Care [RC] . DIRECTED Abdomen Pelvis w Cont [CT] Stat Sodium Chloride 0.9% [Saline Flush] 10 ml FLUSH ASDIRECTED PRN ED Antiemetic Medication Reflex [OM.PC] Stat Peripheral IV Insertion Adult [OM.PC] Stat 11/10/21 23:57 Famotidine [Pepcid] 20 mg IVPUSH ONETIME ONE Pantoprazole [ProTONIX IV] 40 mg IVPUSH ONETIME ONE
[2021-11-10] MEDS ORDERED: Famotidine 20 MG/2 ML SDV IVPUSH ONE (23:57)
[2021-11-10] MEDS ORDERED: Pantoprazole 40 MG Vial IVPUSH ONE (23:57)
--- NOTE | 2021-11-11 08:41 | CT ---
CT abdomen and pelvis Technique: Multiple axial sections were obtained from above the dome of the diaphragm inferiorly through the pubic symphysis. Intravenous and oral contrast were utilized. Delayed images were obtained. Reconstructed coronal and sagittal images were also obtained. Comparison: Prior CT abdomen and pelvis study of 05/13/17. Findings: Very minimal posterior atelectasis is seen within both lung bases. Liver contains no focal abnormality. Spleen size is normal. Adrenal glands show no nodule. Pancreas is within normal limits. Gallbladder contains no calcified gallstones. Kidneys show symmetric contrast enhancement. No hydronephrosis or mass is seen. Contrast is noted on delayed images within both ureters and within the bladder. Abdominal aorta shows mild atherosclerotic calcification with no aneurysm. No retroperitoneal adenopathy is seen. No mesenteric abnormalities are seen. No pelvic mass or adenopathy is seen. Appendix is seen which is normal in size. Mildly fluid-filled small bowel loops are seen with slight enhancement of the bowel wall. Findings are suspicious for possible gastroenteritis. No free fluid or inflammatory change is seen. Bone window settings were reviewed. No acute osseous finding is seen. Impression: 1. Diffuse fluid within small bowel. Slight enhancement of the bowel wall is seen. Findings most likely represent gastroenteritis. Please correlate with patient's symptoms. 2. Other incidental findings as noted above. Diagnostic code #3 I agree with preliminary report from [facility], finalized on 11/11/21, 12:27 AM VALUATION CONSULTANT, code 1
== END 2021-11-11 00:20 | disposition home or self-care (01) ==
LOC: JD.ED 20:53
DX: K52.9 Noninfective gastroenteritis and colitis, unspecified (principal); R11.2 Nausea with vomiting, unspecified; E78.00 Pure hypercholesterolemia, unspecified; I25.2 Old myocardial infarction; Z95.5 Presence of coronary angioplasty implant and graft; Z79.82 Long term (current) use of aspirin; Z79.899 Other long term (current) drug therapy
CPT/HCPCS: 36415; 74177; 80053; 81001; 83690; 85025; 96374; 96375; 99284; C9113; J1170; J2765; J3490; J7030

== ENCOUNTER 2022-10-18 07:03 | Day surgery (SDC) | payer BC ==
[~2022-10-18 07:03] MED LIST: Lactated Ringers 1,000 ML IV SCH; Lidocaine 1% 4 ML ONE; Lidocaine 1%/Sod Bicarbonate in NS 8.4% 1 ML Syringe IDERM PRN; Propofol 200 MG/20 ML SDV ONE; Sodium Chloride 0.9% 10 ML Syringe FLUSH PRN; Sodium Chloride 0.9% 10 ML Syringe FLUSH SCH
[2022-10-18 09:06] VITALS: BP 120/70; PULSE 76
== END 2022-10-18 09:15 | disposition home or self-care (01) ==
LOC: JD.SDS 07:03
PROVIDERS: ATTEND Surgery
DX: Z12.11 Encounter for screening for malignant neoplasm of colon (principal); D12.0 Benign neoplasm of cecum; J30.9 Allergic rhinitis, unspecified; J20.9 Acute bronchitis, unspecified; E78.5 Hyperlipidemia, unspecified; K21.9 Gastro-esophageal reflux disease without esophagitis; I25.10 Atherosclerotic heart disease of native coronary artery without angina pectoris; F17.210 Nicotine dependence, cigarettes, uncomplicated; Z79.82 Long term (current) use of aspirin; Z79.899 Other long term (current) drug therapy; Z98.890 Other specified postprocedural states; Z68.38 Body mass index [BMI] 38.0-38.9, adult
CPT/HCPCS: 45380; 45385; J2704; J7120